=== PATIENT | female | born 1985 | race Caucasian/White ===

== ENCOUNTER → 2017-03-23 | Outpatient (CLI) | payer OTHER ==
[~2017-03-23] MED LIST: PRENTAB26 PO; [UNRECOGNIZED DRUG - OTHER] PO
[2017-03-23 17:43] LABS: PLATELET COUNT 301 K/uL (130-400)
[2017-03-23 17:56] LABS: ALT/SGPT 22 U/L (12-78); BLOOD UREA NITROGEN 17 mg/dl (7-18); BUN/CREATININE RATIO 19.1 (10-20); CALCIUM 9.7 mg/dl (8.5-10.1); CARBON DIOXIDE 25 mmol/L (21-32); CHLORIDE 108 mmol/L (98-107); CREATININE 0.88 mg/dl (0.60-1.20); GLUCOSE 89 mg/dl (70-99); SODIUM 141 mmol/L (136-145)
[2017-03-23 18:07] LABS: ALB/GLOB RATIO 1.2 (0.9-2); ALKALINE PHOSPHATASE 69 U/L (45-117); AST/SGOT 11 U/L (15-37); THYROID STIMULATING HORMONE 0.874 uIu/ml (0.300-4.500)
== END | disposition home or self-care (01) ==
LOC: C.LABBFT 13:25
PROVIDERS: ATTEND Family Medicine
DX: E66.8 Other obesity (principal)

== ENCOUNTER 2017-05-17 17:01 | Emergency (ER) | payer OTHER ==
[~2017-05-17] VITALS: Ht 149.9 cm; Wt 64.8 kg
[2017-05-17 17:09] VITALS: BP 118/79; TEMP 36.9; Ht 149.9 cm; Wt 64.8 kg
[2017-05-17] MEDS ORDERED: PHEN37.585 PO (17:32)
[2017-05-17] MEDS ORDERED: CEPH500C PO (17:42)
[2017-05-17 18:01] VITALS: PULSE 85; O2SAT 99
--- NOTE | 2017-05-18 00:29 | EMERGENCY ROOM VISIT NOTE ---
History First contact with patient: 17:17 Chief Complaint: OTHER COMPLAINT Stated Complaint: BOIL/ABSCESS ON BUTTOCKS, CYST ON RIGHT ARM History of Present Illness The patient is a 31 year old female who presents to the Emergency Room with complaints of a draining cyst on her left buttock, and small her right upper arm. The patient reports that the lump on her buttock started to drain 2 days ago. It has now stopped draining, but still appears red. She reports that the size has decreased. She does report that the pain has improved since it drained. She also reports a lump that has been on her right upper arm for several years. Does not cause any significant discomfort, and has had no recent changes in appearance. The patient denies any prior history of antibiotic resistant infections. Sitting worsens her discomfort to a 3 out of 10. Review of Systems 10 system review was performed and was negative except for pertinent positives and negatives as indicated in history of present illness Past Medical/Surgical History Medical Problems: (1) Anxiety and depression Family History Hypertension Social History Smoking Status: Never Smoker Alcohol Use: none Drug Use: none Marital Status: single Housing Status: lives with family Current/Historical Medications Scheduled Cephalexin Monohydrate (Keflex), 500 MG PO QID Phentermine Hcl (Adipex P), 37.5 MG PO DAILY Physical Exam Vital Signs Date Time Temp Pulse Resp B/P (MAP) Pulse Ox O2 Delivery O2 Flow Rate FiO2 05/17/17 18:01 85 18 99 Room Air 05/17/17 17:09 36.9 92 18 118/79 99 Room Air Physical Exam CONSTITUTIONAL: Healthy and well nourished. Alert and oriented X 3 with positive affect. HEENT: Normocephalic, atraumatic. Pupils equal, round and reactive. NECK: Full active range of motion without discomfort. MUSCULOSKELETAL: Full range of motion of all joints without discomfort. INTEGUMENTARY: With a female nurse certified juvenile probation officer present, examination of the left medial buttock shows a 1 cm diameter round area of induration. There does appear to be evidence for prior drainage, and no underlying fluctuance is noted. There is minimal overriding tissue over erythema. Further exam of the right lateral upper arm shows a 1 cm well demarcated and firm brown colored nodule without umbilication,, surrounding erythema or induration. NEUROLOGIC: No focal neurologic deficits noted. Medical Decision & Procedures ED Course Patient history and physical exam were performed. Nurse's notes were reviewed. Based on clinical exam of the left buttock, the patient was advised that there is likely no collection of purulence to warrant attempted I&D procedure. I did recommend providing treatment with Keflex antibiotics in case the infection worsens. Regarding the nodule on her right upper extremity, I did suggest that she follow-up with dermatology for further reassessment. She may take ibuprofen or Tylenol as needed for pain. The patient was happy with plan of care, voiced understanding of all discharge instructions, and denied any significant discomfort at the time of discharge. Medical Decision Medication Reconcilliation Current Medication List: was personally reviewed by me Blood Pressure Screening Patient's blood pressure: Normal blood pressure Impression Primary Impression: Left buttock abscess Additional Impression: Mass of soft tissue of right upper extremity Departure Information Dispostion Home / Self-Care Condition GOOD Prescriptions Cephalexin Monohydrate (Keflex) 500 Mg Cap 500 MG PO QID for 7 Days, #28 CAP Prov: Gerson Millard PA 05/17/17 Referrals Jono Swan M.D. (PCP) Rohit Denson MD Forms HOME CARE DOCUMENTATION FORM, IMPORTANT VISIT INFORMATION Patient Instructions My [facility] [employer] Additional Instructions Continue to intermittently apply warm moist compresses to the buttock. If the redness and swelling progressively worsens, take Keflex antibiotics as prescribed. Ibuprofen or Tylenol as needed for pain. Suggest follow-up with dermatology (Dr. Denson) for further reevaluation of the lesion on the right upper arm. Problem Qualifiers
== END 2017-05-17 17:59 | disposition home or self-care (01) ==
LOC: C.EDB 17:03 → C.EDD 17:59
DX: L02.31 Cutaneous abscess of buttock (principal); R22.31 Localized swelling, mass and lump, right upper limb; F41.8 Other specified anxiety disorders; Z82.49 Family history of ischemic heart disease and other diseases of the circulatory system

== ENCOUNTER 2017-06-02 16:20 | Emergency (ER) | payer SELFPAY ==
[~2017-06-02] VITALS: Ht 149.9 cm; Wt 65.6 kg
[~2017-06-02 16:20] MED LIST changes: +PHEN37.585 PO; -PRENTAB26 PO; -[UNRECOGNIZED DRUG - OTHER] PO
[2017-06-02 16:24] VITALS: TEMP 36.9; Ht 149.9 cm; Wt 65.6 kg
--- NOTE | 2017-06-02 16:41 | EMERGENCY ROOM VISIT NOTE ---
History First contact with patient: 16:30 Chief Complaint: URINARY SYMPTOMS Stated Complaint: FREQUENT URINATION EVERY HOUR TO HALF HOUR History of Present Illness The patient is a 31 year old female who presents to the Emergency Room with complaints of urinary frequency over the last 2 days. The patient denies any dysuria or hematuria. No flank pain, nausea, vomiting, fever or chills. She denies any new medications. She denies any illicit drug use. Review of Systems 6 system review negative. Please see pertinent positives in the history of present illness section. Past Medical/Surgical History Medical Problems: (1) Anxiety and depression Family History Hypertension Social History Smoking Status: Never Smoker Alcohol Use: none Drug Use: none Marital Status: single Housing Status: lives with family Current/Historical Medications Scheduled Ciprofloxacin Hcl (Cipro), 500 MG PO BID Phentermine Hcl (Adipex P), 37.5 MG PO DAILY Physical Exam Vital Signs Date Time Temp Pulse Resp B/P (MAP) Pulse Ox O2 Delivery O2 Flow Rate FiO2 06/02/17 17:48 87 18 125/83 98 06/02/17 16:24 36.9 87 18 125/83 98 Room Air Physical Exam VITALS: Vitals are noted on the nurse's note and reviewed by myself. Vital signs stable. GENERAL: 31-year-old female, in no acute distress, nondiaphoretic, well- developed well-nourished. SKIN: The skin was without rashes, erythema, edema, or bruising. HEAD: Normocephalic atraumatic. MOUTH: Mucous membranes moist NECK: Supple without nuchal rigidity. No JVD. HEART: Regular rate and rhythm without murmurs gallops or rubs. LUNGS: Clear to auscultation bilaterally without wheezes, rales or rhonchi. No accessory muscle use. ABDOMEN: Positive bowel sounds x 4.Soft, nontender, without organomegaly. No guarding or rebound tenderness. No CVA tenderness bilaterally. MUSCULOSKELETAL: No muscle atrophy, erythema, or edema noted. Strength 5/5 throughout. NEURO: Patient was alert and oriented to person place and time. Normal sensation to touch. No focal neurological deficits. Medical Decision & Procedures Laboratory Results Test 06/02/17 16:54 Urine Color YELLOW Urine Appearance CLEAR (CLEAR) Urine pH 5.0 (4.5-7.5) Urine Specific [place] 1.033 (1.000-1.030) Urine Protein NEG (NEG) Urine Glucose (UA) NEG (NEG) Urine Ketones NEG (NEG) Urine Occult Blood TRACE (NEG) Urine Nitrite NEG (NEG) Urine Bilirubin NEG (NEG) Urine Urobilinogen NEG (NEG) Urine Leukocyte Esterase SMALL (NEG) Urine WBC (Auto) >30 /hpf (0-5) Urine RBC (Auto) 0-4 /hpf (0-4) Urine Hyaline Casts (Auto) 0 /lpf (0-5) Urine Epithelial Cells (Auto) >30 /lpf (0-5) Urine Bacteria (Auto) 1+ (NEG) Urine Test NEG (NEG) Medications Administered Medications (Trade) Dose Ordered Sig/Mónica Route Start Time Stop Time Status Last Admin Dose Admin Ciprofloxacin (Cipro Tab) 500 mg NOW STAT PO 06/02/17 17:16 06/02/17 17:28 DC 06/02/17 17:40 500 MG ED Course Patient was seen and examined Vital signs including blood pressure were reviewed medications list was verified with patient A urinalysis was performed The findings were discussed with the patient. She was given 1 dose of ciprofloxacin 500 mg po I reviewed discharge instructions the patient. They voiced understanding and had no further questions. Medical Decision Differential diagnosis: UTI, diabetes insipidus, pyelonephritis, interstitial cystitis This patient is a 31-year-old female that presented to the emergency department with urinary frequency. A urinalysis confirms a UTI. The patient is nontoxic in appearance. She is afebrile. There is no flank pain, nausea or vomiting or abdominal/flank pain to suggest pyelonephritis. I believe she is stable to be discharged home on oral antibiotics. A culture was sent. She will follow-up with her primary care physician if she is not improving, or return to the emergency department with worsening symptoms This chart was completed in part utilizing [employer] Speech Voice Recognition software. Attempts were made to minimize the grammatical errors, random word insertions, pronoun errors and incomplete sentences. Any formal questions or concerns about the content, text or information contained within the body of this dictation should be directly addressed to the provider for clarification. Medication Reconcilliation Current Medication List: was personally reviewed by me Blood Pressure Screening Patient's blood pressure: Normal blood pressure Impression Primary Impression: Urinary tract infection Departure Information Dispostion Home / Self-Care Condition GOOD Prescriptions Ciprofloxacin Hcl (CIPRO) 500 Mg Tab 500 MG PO BID, #13 TAB Prov: Genesis Oliver PA-C 06/02/17 Referrals Jono Swan M.D. (PCP) Patient Instructions My [facility] Additional Instructions You were evaluated in the emergency department for frequent urination. It appears that you have a urinary tract infection. Please take the entire course of antibiotics. Please take this medication with food. Please also eat yogurt daily while on this medication. Ibuprofen 600 mg every 6 hours as needed for discomfort or fever. Please follow-up with your primary care physician if there is no improvement within the next week. Please return to the emergency department with any new or worsening symptoms.
[2017-06-02 17:08] LABS: MANUAL MICROSCOPIC REQUIRED? NO; REVIEW REQ? NO; URINE APPEARANCE CLEAR (CLEAR); URINE BILIRUBIN NEG (NEG); URINE COLOR YELLOW; URINE EPITHELIAL CELL AUTO >30 /lpf (0-5); URINE NITRITE NEG (NEG); URINE SPECIFIC GRAVITY 1.033 (1.000-1.030); UROBILINOGEN NEG (NEG)
[2017-06-02] MEDS ORDERED: CIPROFLOXACIN 500 MG TAB PO STA (17:16)
[2017-06-02] MEDS ORDERED: CIPR-255 PO (17:37)
[2017-06-02 17:48] VITALS: BP 125/83; PULSE 87; O2SAT 98
== END 2017-06-02 17:49 | disposition home or self-care (01) ==
LOC: C.EDB 16:22 → C.EDC 17:49
DX: N39.0 Urinary tract infection, site not specified (principal); F41.8 Other specified anxiety disorders; Z82.49 Family history of ischemic heart disease and other diseases of the circulatory system